=== PATIENT | female | born 1965 | race Two or more races ===

== ENCOUNTER 2018-06-09 10:10 | Emergency (ER) | payer OTHER ==
[2018-06-09] MEDS ORDERED: ONDANSETRON 4 MG/2 ML VIAL IVP ONE (10:40)
[2018-06-09] MEDS ORDERED: DEXAMETHASONE 10 MG/ML VIAL IVP ONE (10:40)
[2018-06-09] MEDS ORDERED: NS 1,000 ML IV ONE (10:40)
[2018-06-09] MEDS ORDERED: HYDROmorphONE/DILAUDID 2 MG/ML INJ IVP ONE (10:40)
--- NOTE | 2018-06-09 10:41 | EDPHY ---
H & P Stated Complaint: MEJIA, nausea Time Seen by Provider: 06/09/18 10:37 HPI/ROS: HPI: This is a 52-year-old female who presents with Chief Complaint: Bilateral forehead and behind the eye headache, nausea Location: Bilateral forehead and behind the eyes Quality: Sudden onset sharp, severe headache Duration: 4 hr Signs and Symptoms: no fever, + nausea, no vomiting, no photophobia, no noise sensitivity, no neck stiffness, no ear pain, no tinnitus, no nasal congestion, no sinus pressure, no weakness, no radiation, no aura, no rash Timing: Acute, constant Severity: 12/01 Context: Reports that she woke up this morning with severe, sharp headache that is located behind her eyes forehead. She reports that she has nausea. She does have a history of headaches migraine type in nature but this is "the worst headache she has had." She denies any dizziness, speech difficulty, weakness, fever, neck stiffness. She took ibuprofen without relief. Modifying Factors: See above Comment: ROS: A comprehensive 10 system review of systems is otherwise negative aside from elements mentioned in the history of present illness. MEDICAL/SURGICAL/SOCIAL HISTORY: Medical history: malignant melanoma, HELLP syndrome Surgical history: x3, breast augmentation Social history: . Nonsmoker. Family history noncontributory. CONSTITUTIONAL: Moderate distress, cool rag over eyes and reluctant to open eyes, writhing in ER stretcher, awake and alert HEENT: Atraumatic and normocephalic, PERRL, EOMI. Nares patent; no rhinorrhea; no nasal mucosal edema. Tympanic membranes clear. Oropharynx clear, no exudate and moist pink mucosa. Airway patent. No lymphadenopathy. No meningismus. Cardiovascular: Normal S1/S2, regular rate, regular rhythm, without murmur rub or gallop. PULMONARY/CHEST: Symmetrical and nontender. Clear to auscultation bilaterally. Good air movement. No accessory muscle usage. ABDOMEN: Soft, nondistended, nontender, no rebound, no guarding, no peritoneal signs, no masses or organomegaly. No CVAT. EXTREMITIES: 2/2 pulses, strength 5/5, no deformities, no clubbing, no cyanosis or edema. NEUROLOGICAL: no focal neuro deficits. GCS 15. Cranial nerves 2-12 grossly intact. Speech normal. SKIN: Warm and dry, no erythema. no rash. Good capillary refill. Source: Patient, Family () Exam Limitations: Clinical condition - Personal History Current Tetanus/Diphtheria Vaccine: Unsure Current Tetanus Diphtheria and Acellular Pertussis (TDAP): Unsure - Medical/Surgical History Hx Asthma: No Hx Chronic Respiratory Disease: No Hx Diabetes: No Hx Cardiac Disease: No Hx Renal Disease: No Hx Cirrhosis: No Hx Alcoholism: No Hx HIV/AIDS: No Hx Splenectomy or Spleen Trauma: No Other PMH: malignant melanoma, x3, HELP syndrome, breast augmentation - Social History Smoking Status: Never smoked Constitutional: Initial Vital Signs Temperature (C) 36.4 C 06/09/18 10:24 Heart Rate 81 06/09/18 10:24 Respiratory Rate 16 06/09/18 10:24 Blood Pressure 145/89 H 06/09/18 10:24 O2 Sat (%) 98 06/09/18 10:24 O2 Delivery Mode Room Air Allergies/Adverse Reactions: cephalexin monohydrate [From Keflex] Allergy (Severe, Verified 06/09/18 10:24) Anaphylaxis Sulfa (Sulfonamide Antibiotics) Allergy (Severe, Verified 06/09/18 10:24) Anaphylaxis Home Medications: Medication Instructions Recorded Tylenol 06/09/18 Medical Decision Making - Diagnostics Imaging Results: Imaging Impressions Head CT 06/09/18 10:40 Impression: Normal. Results called and discussed with Sridevi Smith PA-C, at 06/09/2018 12:00. Head CTA 06/09/18 10:40 Impression: 1. No significant stenosis or dissection is seen in either carotid artery or vertebral artery. Probable mild fibromuscular dysplasia in the internal carotid arteries, bilateral. 2. 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 Measurement of carotid stenosis is based on the residual internal carotid diameter with [place] Symptomatic Carotid Endarterectomy Trial (NASCET) based stenosis levels. CT Angiography of the Brain Clinical Indications: Thunderclap headache. Technique: CT angiogram of the brain was performed with the uneventful intravenous administration of 85 mL Isovue-370 contrast. Multiplanar reconstructions including 3D reconstructions performed and evaluated on [employer] workstation in order to better evaluate the [place] vessels. Images were manipulated by the radiologist at the computer workstation. Dose reduction techniques were utilized. Findings: Major vessels of the [place] are adequately displayed, demonstrating no evidence of aneurysm, vascular malformation, flow-limiting stenosis, or occlusion. Bilateral cavernous internal carotid arteries and vertebrobasilar system demonstrates no evidence of flow-limiting stenosis, aneurysm, occlusion or dissection. Superior sagittal sinus, transverse sinuses, and major veins demonstrate no evidence of intraluminal thrombi. 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 Impression: Negative CT angiogram of the brain. Results called and discussed with SHOAIB Mendez on 06/09/2018, 12:14. Neck CTA 06/09/18 10:40 Impression: 1. No significant stenosis or dissection is seen in either carotid artery or vertebral artery. Probable mild fibromuscular dysplasia in the internal carotid arteries, bilateral. 2. 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 Measurement of carotid stenosis is based on the residual internal carotid diameter with [place] Symptomatic Carotid Endarterectomy Trial (NASCET) based stenosis levels. CT Angiography of the Brain Clinical Indications: Thunderclap headache. Technique: CT angiogram of the brain was performed with the uneventful intravenous administration of 85 mL Isovue-370 contrast. Multiplanar reconstructions including 3D reconstructions performed and evaluated on [employer] workstation in order to better evaluate the [place] vessels. Images were manipulated by the radiologist at the computer workstation. Dose reduction techniques were utilized. Findings: Major vessels of the [place] are adequately displayed, demonstrating no evidence of aneurysm, vascular malformation, flow-limiting stenosis, or occlusion. Bilateral cavernous internal carotid arteries and vertebrobasilar system demonstrates no evidence of flow-limiting stenosis, aneurysm, occlusion or dissection. Superior sagittal sinus, transverse sinuses, and major veins demonstrate no evidence of intraluminal thrombi. 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 Impression: Negative CT angiogram of the brain. Results called and discussed with SHOAIB Mendez on 06/09/2018, 12:14. ED Course/Re-evaluation: Vital signs reviewed and stable upon arrival. No systemic signs. Placed on cardiac monitor technician. IV access, laboratory studies, head CT, CT head, CTA neck ordered for thunderclap symptoms Given 1 L normal saline, IV Decadron 10 mg, IV Benadryl, IV Dilaudid, IV Zofran 1120: Laboratory studies reviewed. No signs of leukocytosis/anemia/platelet dysfunction/ALEXUS/electrolyte imbalance/coagulopathy. 1135: Patient went to Radiology for CT 1208: Called by radiologist, Dr. St, who reports head CT scan shows no acute intracranial process. 1212: Called by Dr. St that CT head a head and CTA neck shows no signs of aneurysm, dissection, stenosis. +Probable mild fibromuscular dysplasia in the internal carotid arteries, bilaterally. 1235: Reassessed patient who is alert and talkative. She reports that her headache is down to a 2/2. She is asking to be discharged home. at bedside will drive patient home. This appears to be a migraine headache versus stress reaction. This patient was seen under the supervision of my primary supervising physician. I evaluated care for this patient independently. Differential Diagnosis: Headache including but not limited to subarachnoid hemorrhage, migraine headache , tension headache and infectious causes such as meningitis, pharyngitis and sinusitis. - Data Points Laboratory Results: Laboratory Results 06/09/18 10:44 06/09/18 10:44 06/09/18 06/09/18 06/09/18 10:52 10:44 10:44 WBC RBC Hgb POC Hgb 15.0 gm/dL gm/dL (12.6-16.3) Hct POC Hct 44 % % (38-47) MCV MCH MCHC RDW Plt Count MPV Neut % (Auto) Lymph % (Auto) [place] % (Auto) Eos % (Auto) Baso % (Auto) Nucleat RBC Rel Count Absolute Neuts (auto) Absolute Lymphs (auto) Absolute Monos (auto) Absolute Eos (auto) Absolute Basos (auto) Absolute Nucleated RBC Immature Gran % Immature Gran # PT 11.1 SEC L SEC (12.0-15.0) INR 0.83 (0.83-1.16) APTT 27.7 SEC SEC (23.0-38.0) POC Sodium 147 mEq/L H mEq/L (135-145) Sodium POC Potassium 4.0 mEq/L mEq/L (3.3-5.0) Potassium POC Chloride 108 mEq/L mEq/L (97-110) Chloride Carbon Dioxide POC Total CO2 26 mEq/L mEq/L (22-31) Anion Gap POC BUN 13 mg/dL mg/dL (7-23) BUN Creatinine POC Creatinine 0.6 mg/dL mg/dL (0.6-1.0) Estimated GFR Glucose POC Glucose 107 mg/dL H mg/dL (70-100) Calcium Beta HCG, Qual NEGATIVE 06/09/18 06/09/18 10:44 10:44 WBC 8.98 10^3/uL 10^3/uL (3.80-9.50) RBC 4.39 10^6/uL 10^6/uL (4.18-5.33) Hgb 13.6 g/dL g/dL (12.6-16.3) POC Hgb Hct 40.8 % % (38.0-47.0) POC Hct MCV 92.9 fL fL (81.5-99.8) MCH 31.0 pg pg (27.9-34.1) MCHC 33.3 g/dL g/dL (32.4-36.7) RDW 12.9 % % (11.5-15.2) Plt Count 202 10^3/uL 10^3/uL (150-400) MPV 12.0 fL H fL (8.7-11.7) Neut % (Auto) 63.2 % % (39.3-74.2) Lymph % (Auto) 30.1 % % (15.0-45.0) [place] % (Auto) 5.5 % % (4.5-13.0) Eos % (Auto) 0.6 % % (0.6-7.6) Baso % (Auto) 0.6 % % (0.3-1.7) Nucleat RBC Rel Count 0.0 % % (0.0-0.2) Absolute Neuts (auto) 5.69 10^3/uL 10^3/uL (1.70-6.50) Absolute Lymphs (auto) 2.70 10^3/uL 10^3/uL (1.00-3.00) Absolute Monos (auto) 0.49 10^3/uL 10^3/uL (0.30-0.80) Absolute Eos (auto) 0.05 10^3/uL 10^3/uL (0.03-0.40) Absolute Basos (auto) 0.05 10^3/uL 10^3/uL (0.02-0.10) Absolute Nucleated RBC 0.00 10^3/uL 10^3/uL (0-0.01) Immature Gran % 0.0 % % (0.0-1.1) Immature Gran # 0.00 10^3/uL 10^3/uL (0.00-0.10) PT INR APTT POC Sodium Sodium 143 mEq/L mEq/L (135-145) POC Potassium Potassium 3.8 mEq/L mEq/L (3.5-5.2) POC Chloride Chloride 108 mEq/L mEq/L (97-110) Carbon Dioxide 25 mEq/l mEq/l (22-31) POC Total CO2 Anion Gap 10 mEq/L mEq/L (6-14) POC BUN BUN 13 mg/dL mg/dL (7-23) Creatinine 0.7 mg/dL mg/dL (0.6-1.0) POC Creatinine Estimated GFR > 60 Glucose 105 mg/dL H mg/dL (70-100) POC Glucose Calcium 9.6 mg/dL mg/dL (8.5-10.4) Beta HCG, Qual Medications Given: Discontinued Medications Dexamethasone (Decadron Injection) 10 mg IVP EDNOW ONE Stop: 06/09/18 10:41 Last Admin: 06/09/18 10:57 Dose: 10 mg Diphenhydramine HCl (Benadryl Injection) 25 mg IVP EDNOW ONE Stop: 06/09/18 10:41 Last Admin: 06/09/18 10:56 Dose: 25 mg Hydromorphone HCl (Dilaudid) 1 mg IVP EDNOW ONE Stop: 06/09/18 10:41 Last Admin: 06/09/18 11:06 Dose: 1 mg Sodium Chloride (Ns) 1,000 mls @ 0 mls/hr IV ONCE ONE; Wide Open PRN Reason: Protocol Stop: 06/09/18 10:41 Last Admin: 06/09/18 10:56 Dose: 1,000 mls Ondansetron HCl (Zofran) 4 mg IVP EDNOW ONE Stop: 06/09/18 10:41 Last Admin: 06/09/18 10:56 Dose: 4 mg Point of Care Test Results: Chemistry 06/09/18 10:52 POC Sodium 147 mEq/L H mEq/L (135-145) POC Potassium 4.0 mEq/L mEq/L (3.3-5.0) POC Chloride 108 mEq/L mEq/L (97-110) POC Total CO2 26 mEq/L mEq/L (22-31) POC BUN 13 mg/dL mg/dL (7-23) POC Creatinine 0.6 mg/dL mg/dL (0.6-1.0) POC Glucose 107 mg/dL H mg/dL (70-100) ISTAT H&H 06/09/18 10:52 POC Hgb 15.0 gm/dL gm/dL (12.6-16.3) POC Hct 44 % % (38-47) Departure - Departure Disposition: Home, Routine, Self-Care Clinical Impression: Migraine headache without aura Qualifiers: Status migrainosus presence: without status migrainosus Intractability: not intractable Qualified Code(s): G43.009 - Migraine without aura, not intractable , without status migrainosus Condition: Good Instructions: Migraine Headache (ED) Additional Instructions: Rest as much as possible until you are feeling better. Consume a minimum of 8-10 glasses of water or electrolyte fluid replacement drinks that include Gatorade, Powerade, Pedialyte. Eat a bland diet for the next 12 hours and then slowly advance as tolerated. Referrals: Robe Rodarte, DO [Medical Doctor] - Follow Up Only If Needed
[2018-06-09 11:01] LABS: PLATELET COUNT 202 10^3/uL (150-400)
[2018-06-09] MEDS ORDERED: IOPAMIDOL (ISOVUE 370) 100 ML BTL IV ONE (11:10)
[2018-06-09 11:22] LABS: INR 0.83 (0.83-1.16); PROTIME(PATIENT) 11.1 SEC (12.0-15.0)
[2018-06-09 12:42] VITALS: BP 99/75
== END 2018-06-09 12:52 | disposition home or self-care (01) ==
DX: G43.009 Migraine without aura, not intractable, without status migrainosus (principal)
CPT/HCPCS: 82435-PO; 82565-PO; 82947-PO; 84132-PO; 84295-PO; 84520-PO; 85014-ER; 96374; J1100; J1170; J1200; J2405; Q9967